=== PATIENT | female | born 1995 | race Caucasian/White ===

== ENCOUNTER 2020-08-31 15:43 | Outpatient (REF) | payer OTHER, SELFPAY ==
[2020-09-01 11:01] LABS: BV Int Neg Control Negative (Negative); BV Int Pos Control Positive (Positive)
[2020-09-01 11:04] LABS: CT PCR NOT DETECTED (Not Detect.); NG PCR NOT DETECTED (Not Detect.)
== END 2020-08-31 15:44 | disposition home or self-care (01) ==
LOC: HO.LAB 15:43
PROVIDERS: PCP Pediatrics; Referring Provider Pediatrics; Visit Provider Obstetrics & Gynecology
DX: B37.3 Candidiasis of vulva and vagina (principal); Z30.9 Encounter for contraceptive management, unspecified
CPT/HCPCS: 87480; 87491; 87510; 87591; 87660; 99212

== ENCOUNTER → 2020-09-16 11:06 | Outpatient (BNVA) | payer OTHER, SELFPAY | PROVIDERS: Visit Provider Advanced Practice Midwife | DX: Z76.89 Persons encountering health services in other specified circumstances (principal) ==

== ENCOUNTER 2020-09-30 10:42 | Emergency (ER) | payer OTHER, SELFPAY ==
[2020-09-30 10:58] VITALS: BP 116/67; PULSE 88; RESP 16; TEMP 36.6; O2SAT 97; BMI 32.9
[2020-09-30 11:21] LABS: Glucose Urine UA NEG (NEG); Leukocyte Esterase Urine NEG (NEG); Nitrite Urine NEG (NEG); Specific Gravity - Urine >= 1.030 (1.005-1.025); Urine Blood NEG (NEG); Urine Ketones NEG (NEG); Urine Protein NEG (NEG-TRACE)
[2020-09-30 11:23] LABS: Appearance Urine CLEAR; Color Urine YELLOW
[2020-09-30 11:24] LABS: UPreg QC Valid YES; Urine Pregnancy NEGATIVE (NEGATIVE)
[2020-09-30 12:04] LABS: Basophils Percent Auto 0.7 % (0-2); Eosinophils Absolute Auto 0.3 X10*3/uL (0.0-0.4); Eosinophils Percent Auto 7.8 % (0-4); Hematocrit 37.5 % (37-47); Hemoglobin 12.3 g/dl (12.0-16.0); Imm Gran Abs Auto 0.01 X10*3/uL (0.00-0.03); Imm Gran Pct Auto 0.2 % (0.0-0.4); Lymphocytes Absolute Auto 1.8 X10*3/uL (1.2-4.9); Lymphocytes Percent Auto 44.8 % (20-40); MANUAL DIFF FLAG NO; Mean Corpuscular HGB Conc 32.8 g/dl (31.0-35.0); Mean Corpuscular Hemoglobin 27.7 pg (27.0-33.0); Mean Corpuscular Volume 84.5 fL (80-98); Mean Platelet Volume 11.5 fL (9.4-12.3); Monocytes Absolute Auto 0.3 X10*3/uL (0.1-1.2); Monocytes Percent Auto 6.6 % (2-11); Neutrophils Absolute Auto 1.6 X10*3/uL (2.0-8.3); Neutrophils Percent Auto 39.9 % (45-73); Platelet Count 175 X10*3/uL (160-400); Red Blood Count 4.44 X10*6/uL (4.20-5.50); Red Cell Distribution Width 12.4 % (11.0-16.0); White Blood Count 4.1 X10*3/uL (4.8-10.8)
--- NOTE | 2020-09-30 12:20 | ED.ABDPAIN ---
HPI - Abdominal Pain General Chief Complaint: Abdominal Pain Stated Complaint: abd pain Time Seen by Provider: 09/30/20 12:20 Source: patient Mode of arrival: ambulatory Limitations: no limitations History of Present Illness HPI narrative: 25-year-old female with past medical history significant for asthma, fibromyalgia and G4, last month cycle 2 weeks ago who presents today with complaint of left-sided abdominal pain that is described as burning and cramping like ongoing for the past and noticed that when she has a bowel movement there is some blood outside the stool. States she also has a history of constipation but has been having somewhat normal bowel movements and has not had any issues with constipation recently. No recent travel, sick contacts, fever, nausea or vomiting. MD elicited complaint: abdominal pain Pertinent past history: none Location: none Severity: moderate Quality: cramping and aching Migration to: LUQ and L flank Relieving factors: nothing Associated symptoms: denies other symptoms Related Data Home Medications Medication Instructions Recorded Confirmed desogestrel 0.15 mg-ethinyl 1 tab PO DAILY 08/31/20 08/31/20 estradiol 0.03 mg tablet Previous Rx's Medication Instructions Recorded clotrimazole-betamethasone 1 1 applic TOPICAL BID 5 Days #45 g 08/31/20 %-0.05 % topical cream desogestrel 0.15 mg-ethinyl 1 tab PO DAILY 28 Days #28 tab 08/31/20 estradiol 0.03 mg tablet fluconazole 150 mg tablet 150 mg PO ONCE #1 tab 08/31/20 metronidazole 500 mg tablet 500 mg PO BID 7 Days #14 tab 09/01/20 polyethylene glycol 3350 [Miralax] 17 g PO DAILY #119 g 09/30/20 Allergies Allergy/AdvReac Type Severity Reaction Status Date / Time Penicillins [PCN] Allergy Intermediate RASH Verified 09/16/20 11:08 penicillin V Allergy Unknown rash Verified 09/16/20 11:08 hard shelled crab Allergy Unknown severe Uncoded 08/31/20 15:52 oral swelling PCN Allergy Unknown rash Uncoded 08/31/20 15:52 SEAFOOD Allergy Unknown SWELLING Uncoded 08/31/20 15:52 wasps Allergy Unknown severe Uncoded 08/31/20 15:52 site swelling Review of Systems Review of Systems Constitutional: No Weight loss, No Fever, No Chills, No Night Sweats, No Fatigue, No Malaise ENT/Mouth: No Hearing loss, No Ear Pain, No Nasal Congestion, No Sinus Pain, No Hoarseness, No sore throat, No Rhinorrhea, No Swallowing Difficulty Eyes: No Eye Pain, No Swelling, No Redness, No Foreign Body, No Discharge, No Vision Changes Cardiovascular: No Chest Pain, No SOB, No Dyspnea on Exertion, No Orthopnea, No Edema, No Palpitations Respiratory: No Cough, No Sputum, No Wheezing, No Dyspnea Gastrointestinal:As nopted in HPI Genitourinary: no irregular bleeding, No Dysuria, No Urinary Frequency, No Hematuria, No Urinary Incontinence, No Urgency, No Flank Pain, No Urinary Flow Changes, No Hesitancy Musculoskeletal: No joint pain, No Myalgias, No Joint Swelling Skin: No Skin Lesions, No rash Neuro: No Weakness, No Numbness, No Paresthesias, No Loss of Consciousness, No Dizziness, No Headache Psych: No Social Issues Heme/Lymph: No Bruising, No Bleeding,No Lymphadenopathy Endocrine: No Polyuria, No Polydipsia, No Temperature Intolerance Yes all other systems are reviewed and are negative Physical Exam Vital Signs: Vital Signs: Last Vital Signs Temp 98.1 F 09/30/20 14:11 Pulse 76 09/30/20 14:11 Resp 16 09/30/20 14:11 BP 113/72 09/30/20 14:11 Pulse Ox 99 09/30/20 14:11 Body Mass Index 32.9 Reviewed Const: General: cooperative and healthy appearing; No acute distress or intoxicated appearing Nutritional Appearance: average body habitus Orientation/consciousness: patient oriented x3 HENMT: Head: Yes normal to inspection Ears: hearing grossly normal bilaterally Eyes: General: appearance normal, both eyes and all related structures Visual Reyes: normal visual reyes by confrontation Neck: Neck: Yes normal visual inspection and No tender Thyroid: Thyroid normal Chest: Chest palpation & inspection: normal inspection of the chest Resp: Effort & Inspection: normal respiratory effort Cardio: Jugular venous distension: no JVD Rhythm: regular rhythm Heart sounds: S1 normal heart sound present and S2 normal heart sound present GI: Inspection: Yes normal to inspection Percussion: Yes normal to percussion Auscultation: normal bowel sounds : General: Yes no CVA tenderness Back/Spine/Pelvis: Back: no CVA tenderness Skin: General skin exam: no rashes or lesions noted Neuro: General: patient oriented x3 Extrem: General: Yes normal to inspection Course Course Course Narrative: Has been resting comfortably, hemodynamically stable. Lab work overall unremarkable, H&H stable. Bedside occult stool negative. CT of the abdomen does not show any inflammatory/infectious pathology does show some findings consistent with constipation. Given the picture that she showed me consistent with constipation could be a cause of her rectal bleeding as well as internal hemorrhoids. At this time no need for emergent evaluation by GI. Will follow up with her primary care doctor and referral provided to GI. In the meantime she will follow high-fiber diet, increase her fluid intake and supple with MiraLax. She is agreeable/comfortable plan. Stable for discharge. MDM - Abdominal Pain MDM Narrative Medical decision making narrative: Show me a picture of her bowel movement in the toilet; shows brown ball formed stool and the water in the toilet bowl has some cloudy kobe blood very minimal. Differential Diagnosis Differential diagnosis: Likely abdominal pain, constipation, diverticulitis and gastroenteritis; Unlikely aortic dissection, acute appendicitis, bowel perforation, calculus of kidney, pancreatitis, peptic ulcer disease, renal colic and small bowel obstruction Lab Data Result diagrams: 09/30/20 11:59 09/30/20 11:59 Labs: Lab Results 09/30/20 09/30/20 09/30/20 Range/Units 11:07 11:59 11:59 WBC 4.1 L (4.8-10.8) X10*3/uL RBC 4.44 (4.20-5.50) X10*6/uL Hgb 12.3 (12.0-16.0) g/dl Hct 37.5 (37-47) % MCV 84.5 (80-98) fL MCH 27.7 (27.0-33.0) pg MCHC 32.8 (31.0-35.0) g/dl RDW 12.4 (11.0-16.0) % Plt Count 175 (160-400) X10*3/uL MPV 11.5 (9.4-12.3) fL Immature Gran % (Auto) 0.2 (0.0-0.4) % Neut % (Auto) 39.9 L (45-73) % Lymph % (Auto) 44.8 H (20-40) % Wharton % (Auto) 6.6 (2-11) % Eos % (Auto) 7.8 H (0-4) % Baso % (Auto) 0.7 (0-2) % Lymph # (Auto) 1.8 (1.2-4.9) X10*3/uL Wharton # (Auto) 0.3 (0.1-1.2) X10*3/uL Eos # (Auto) 0.3 (0.0-0.4) X10*3/uL Baso # (Auto) 0.0 (0.0-0.2) X10*3/uL Abs Immat Gran (auto) 0.01 (0.00-0.03) X10*3/uL Absolute Neuts (auto) 1.6 L (2.0-8.3) X10*3/uL Absolute Nucleated RBC 0.000 (0.0-0.012) X10*3/uL Nucleated RBC % (auto) 0.0 (0.0-0.2) /100WBC Sodium 140 (135-145) mmol/L Potassium 3.6 (3.3-5.1) mmol/l Chloride 106 (96-108) mmol/L Carbon Dioxide 25 (22-29) mmol/L Anion Gap 13 (12-20) BUN 15 (9-16) mg/dL Creatinine 0.66 (0.5-1.4) mg/dL Estim Creat Clear Calc 128.9 Estimated GFR > 60 Random Glucose 97 (60-115) mg/dL Calcium 9.0 (8.4-10.2) mg/dL Total Bilirubin 0.3 (0.0-1.0) mg/dL Direct Bilirubin 0.2 (0.0-0.5) mg/dL AST 11 (5-31) U/L ALT 8 (0-31) U/L Alkaline Phosphatase 58 (39-117) U/L Total Protein 6.8 (6.5-8.0) g/dL Albumin 3.9 (3.5-5.0) g/dL Lipase 20 (8-78) U/L Urine Color YELLOW Urine Appearance CLEAR Urine pH 6.0 (5.0-8.0) Ur Specific Sabina >= 1.030 H (1.005-1.025) Urine Protein NEG (NEG-TRACE) MG/DL Urine Glucose (UA) NEG (NEG) MG/DL Urine Ketones NEG (NEG) MG/DL Urine Blood NEG (NEG) Urine Nitrite NEG (NEG) Ur Leukocyte Esterase NEG (NEG) Urine Test NEGATIVE (NEGATIVE) Discharge Plan Discharge Clinical Impression: Constipation, Bright red rectal bleeding Patient Disposition: Home, Self-Care Instructions: Constipation (ED), Rectal Bleeding (ED) Additional Instructions: Today your evaluated for the left-side abdominal pain and the bright red blood in the stool Your blood work overall was stable The CT scan of your abdomen was also within normal limits as discussed with you The bleeding can be result of the constipation that you have been suffering and possibly internal hemorrhoids Please follow high-fiber diet Supplement with MiraLax Push fluids Follow-up with her primary care doctor/cardiac care nurse as discussed Return if any concerns or worsening symptoms Thank you Prescriptions: New polyethylene glycol 3350 [Miralax] 17 gram/dose powder 17 g PO DAILY Qty: 119 RF: 1 No Action metronidazole [Flagyl] 500 mg tablet 500 mg PO BID 7 Days Qty: 14 RF: 0 desogestrel-ethinyl estradiol 0.15-0.03 mg tablet 1 tab PO DAILY RF: 0 fluconazole 150 mg tablet 150 mg PO ONCE Qty: 1 RF: 0 clotrimazole-betamethasone 1-0.05 % cream 1 applic topical BID 5 Days Qty: 45 RF: 0 desogestrel-ethinyl estradiol [Apri] 0.15-0.03 mg tablet 1 tab PO DAILY 28 Days Qty: 28 RF: 11 Referrals: ED Physician,Generic [Emergency Provider] - 1 week (Primary care is provided) Tito Gaffney MD [Physician] - 2 weeks [facility] Past Medical History Medical History (Updated 09/30/20 @ 14:30 by Yves Valenzuela NP) Asthma Fibromyalgia Social History Social History Alcohol intake: never Smoking Status: Never smoker Use of substances other than those prescribed or required for medical reasons: No Advance Directives: No Advance Directives Information Provided: No Sexual orientation: Straight/Heterosexual Gender identity: female
--- NOTE | 2020-09-30 12:24 | CT_ITS ---
EXAMINATION: CT ABDOMEN AND PELVIS WITH CONTRAST CLINICAL INFORMATION: Left-sided abdominal pain/rectal bleed. COMPARISON: None TECHNIQUE: Multidetector volumetric images were obtained from the superior aspect of the liver through the pubic symphysis following administration 85 mL of Omnipaque 350 intravenous contrast. Sagittal and coronal reformatted images were obtained on the technologist's workstation. Oral contrast: No This CT examination was performed using dose optimization techniques as appropriate, variously including the following: *Automated exposure control *Adjustment of mA and/or kV according to patient size (this includes techniques or standardized protocols for targeted exams where dose is matched to indication/reason for exam; i.e. extremities or head) *Use of iterative reconstruction technique DLP: 655 mGy-cm FINDINGS: LUNG BASES: The visualized lung bases are unremarkable. LIVER, GALLBLADDER, AND BILIARY TREE: The liver is normal in size, shape, and attenuation. No focal hepatic lesion or biliary ductal dilatation is present. The gallbladder is unremarkable with no evidence of radiopaque gallstones, gallbladder wall thickening, or obvious pericholecystic inflammatory changes. PANCREAS: Unremarkable. SPLEEN: Unremarkable. ADRENAL GLANDS: Unremarkable. KIDNEYS AND URETERS: The kidneys are normal in size, shape, and attenuation. No hydronephrosis, hydroureter, or calculi seen. No perinephric stranding. BLADDER: Unremarkable. GASTROINTESTINAL TRACT: Scattered stool and gas seen throughout the colon without any significant distention. The small bowel loops are normal caliber. Appendix is normal caliber. No inflammatory changes or obstruction seen. ABDOMINAL WALL: No significant hernia is appreciated. LYMPH NODES: Normal. VASCULAR: Unremarkable. PELVIC VISCERA: There is scattered stool seen in the rectum and the colon. There are uterus appears unremarkable with a hypodense right adnexal lesion measuring 2.1 x 1.5 cm and approximately 2.6 Hounsfield units suggestive of cyst probably right ovarian origin. There is no free fluid in the cul-de-sac. OSSEOUS STRUCTURES: Unremarkable. CT/CT abdomen pelvis w con IMPRESSION: No acute intra-abdominal process seen. Mild constipation. Probable right ovarian cyst.
[2020-09-30 12:28] LABS: Anion Gap 13 (12-20); Blood Urea Nitrogen 15 mg/dL (9-16); Carbon Dioxide 25 mmol/L (22-29); Chloride 106 mmol/L (96-108); Creatinine Clr Calc Pharmacy 128.9; Estimated Glomerular Filt Rate > 60; Glucose Random 97 mg/dL (60-115); Potassium 3.6 mmol/l (3.3-5.1); Sodium 140 mmol/L (135-145)
[2020-09-30 12:36] VITALS: BP 110/58; PULSE 80; RESP 17; TEMP 36.8; O2SAT 99
[2020-09-30] MEDS: 0.9 % Sodium Chloride 1,000 ML 999 ML IV (12:50)
[2020-09-30 13:40] LABS: Alanine Aminotransferase 8 U/L (0-31); Albumin Level 3.9 g/dL (3.5-5.0); Alkaline Phosphatase 58 U/L (39-117); Aspartate Amino Transferase 11 U/L (5-31); Bilirubin Direct 0.2 mg/dL (0.0-0.5); Bilirubin Total 0.3 mg/dL (0.0-1.0); Lipase 20 U/L (8-78); Total Protein 6.8 g/dL (6.5-8.0)
[2020-09-30] MEDS: iohexoL 350 MG/ML 100 ML INFUS..BTL 85 ML IV (13:44)
[2020-09-30 14:11] VITALS: BP 113/72; PULSE 76; RESP 16; TEMP 36.7; O2SAT 99
== END 2020-09-30 14:45 | disposition home or self-care (01) ==
PROVIDERS: Nurse Practitioner Primary Care; Emergency Provider Emergency Medicine Emergency Medical Services
DX: K59.00 Constipation, unspecified (principal); K62.5 Hemorrhage of anus and rectum
CPT/HCPCS: 36415; 74177; 80048; 80076; 81003; 81025; 83690; 85025; 96360; 99284; Q9967

== ENCOUNTER 2021-05-26 12:44 | Outpatient (REF) | payer OTHER, SELFPAY ==
[2021-05-26 14:19] LABS: COVID-19 Test Negative (Negative)
== END 2021-05-26 12:45 | disposition home or self-care (01) ==
LOC: HO.LAB 12:44
PROVIDERS: Visit Provider Internal Medicine
DX: Z20.822 Contact with and (suspected) exposure to COVID-19 (principal)
CPT/HCPCS: 36415; 87635; C9803; U0003; U0005

== ENCOUNTER 2022-08-29 14:50 | Outpatient (REF) | payer MEDICAID, SELFPAY ==
--- NOTE | ~2022-08-29 | US_ITS ---
EXAMINATION: FIRST TRIMESTER OB ULTRASOUND CLINICAL INFORMATION: Positive test. Abdominal pain. Rule out ectopic . COMPARISON: None TECHNIQUE: Transabdominal and transvaginal pelvic ultrasound. Transvaginal exam was performed for better visualization of the gestational sac. FINDINGS: The uterus is normal in size and shape and measures 8.5 x 4 x 5.7 cm. No focal uterine lesion is seen. There is an intrauterine gestational sac. Mean sac diameter measures 0.61 cm which would suggest gestational age of 5 weeks 1 day. No pole or yolk sac. The cervix is normal. The right ovary measures 3.5 x 2.2 x 2.7 cm. There is a 2.3 x 1.8 x 1.9 cm hypoechoic lesion in the right ovary probably representing a corpus luteum. The left ovary is normal-appearing and measures 2.1 x 1.5 x 2.3 cm. There is no fluid in the pelvis. US/US OB limited IMPRESSION: Intrauterine gestational sac. Mean sac diameter suggests gestational age of 5 weeks 1 day. No pole or yolk sac seen, question secondary to early gestational age.
== END 2022-08-29 14:51 | disposition home or self-care (01) ==
LOC: HO.US 14:50
PROVIDERS: Visit Provider Emergency Medicine
DX: O26.891 Other specified pregnancy related conditions, first trimester (principal); R10.9 Unspecified abdominal pain; Z3A.01 Less than 8 weeks gestation of pregnancy
CPT/HCPCS: 76815

== ENCOUNTER 2023-04-25 15:45 | Outpatient (REF) | payer MEDICAID, SELFPAY ==
--- NOTE | ~2023-04-25 | US_ITS ---
EXAMINATION: US VENOUS ULTRASOUND WITH DOPPLER LOWER EXTREMITY, BILATERAL CLINICAL INFORMATION: Pain and swelling. COMPARISON: None available. TECHNIQUE: Ultrasound of the deep veins is performed from the hip to the calf with compression sonography and color and pulse Doppler assessment. Spectral analysis with color-flow imaging is performed. FINDINGS: RIGHT: There is normal venous compression and respiratory variation and augmented flow. The visualized common femoral vein, superficial femoral vein, profunda femoral vein, popliteal vein, and the trifurcation region shows no evidence of deep venous thrombosis. There is no significant popliteal fossa cyst. LEFT: There is normal venous compression and respiratory variation and augmented flow. The visualized common femoral vein, superficial femoral vein, profunda femoral vein, popliteal vein, and the trifurcation region shows no evidence of deep venous thrombosis. There is no significant popliteal fossa cyst. If the patient's symptoms persist, followup ultrasound in 5 days 7 days might be of value to exclude proximal propagation from a non-visualized calf vein. US/US venous duplex LE BI IMPRESSION: No DVT demonstrated in the bilateral lower extremity.
[2023-04-25 16:36] LABS: MANUAL DIFF FLAG NO
[2023-04-25 18:22] LABS: Basophils Percent Auto 0.5 % (0-2); Eosinophils Absolute Auto 0.2 X10*3/uL (0.0-0.4); Eosinophils Percent Auto 3.1 % (0-4); Hematocrit 30.4 % (37.0-47.0); Imm Gran Abs Auto 0.05 X10*3/uL (0.00-0.03); Imm Gran Pct Auto 0.8 % (0.0-0.4); Lymphocytes Absolute Auto 1.8 X10*3/uL (1.2-4.9); Lymphocytes Percent Auto 29.3 % (20-40); Mean Corpuscular HGB Conc 32.9 g/dl (31.0-35.0); Mean Corpuscular Hemoglobin 26.7 pg (27.0-33.0); Mean Corpuscular Volume 81.1 fL (80.0-98.0); Monocytes Absolute Auto 0.5 X10*3/uL (0.1-1.2); Monocytes Percent Auto 7.9 % (2-11); Neutrophils Absolute Auto 3.6 x10*3/uL (2.0-8.3); Neutrophils Percent Auto 58.4 % (45-73); Platelet Count 193 X10*3/uL (160-400); Red Blood Count 3.75 X10*6/uL (4.20-5.50); White Blood Count 6.2 X10*3/uL (4.8-10.8)
[2023-04-25 18:43] LABS: D Dimer High Sensitivity 984 NG/ML
[2023-04-25 18:48] LABS: Iron 30 mcg/dL (30-160); Percent Iron Saturation 9 % (15-50); Total Iron Binding Capacity 351 mcg/dL (228-428); Unsaturated Iron Binding 321 ug/dL
[2023-04-25 18:56] LABS: Ferritin 21 ng/mL (10-122)
== END 2023-04-25 15:46 | disposition home or self-care (01) ==
LOC: HO.US 15:45
PROVIDERS: PCP Registered Nurse; Visit Provider Registered Nurse
DX: M79.89 Other specified soft tissue disorders (principal)
CPT/HCPCS: 36415; 82728; 83540; 85025; 85379; 93970

== ENCOUNTER 2023-07-19 13:52 | Outpatient (REF) | payer MEDICAID, SELFPAY | END 2023-07-19 13:53 | disposition home or self-care (01) | LOC: HO.CHCLDS 13:52 | PROVIDERS: Visit Provider Registered Nurse | DX: E66.01 Morbid (severe) obesity due to excess calories (principal); Z68.42 Body mass index [BMI] 45.0-49.9, adult; D64.9 Anemia, unspecified | CPT/HCPCS: 36415; 80053; 82728; 83036; 83540; 84443; 85025 ==

== ENCOUNTER → 2023-08-28 11:37 | Outpatient (REF) | payer MEDICAID, SELFPAY ==
--- NOTE | 2023-08-28 11:40 | HM_ITS ---
Conclusion: 1. Patient was monitored for total period of 2 days 2. Baseline was normal sinus with average heart of 94 beats per minute 3. No significant pauses noted 4. Frequent sinus tachycardia noted with 32.6% of time heart rate about 100 beats per minute 5. Rare PACs noted 6. No patient reported symptoms MTDD
== END ==
LOC: HO.CARD 11:37
PROVIDERS: PCP Registered Nurse; Visit Provider Registered Nurse
DX: R00.2 Palpitations (principal)
CPT/HCPCS: 93225

== ENCOUNTER → 2023-08-28 11:40 | Outpatient (BNV) | payer MEDICAID, SELFPAY | PROVIDERS: PCP Registered Nurse; Visit Provider Internal Medicine Cardiovascular Disease | DX: R00.0 Tachycardia, unspecified (principal) | CPT/HCPCS: 93227 ==

== ENCOUNTER 2024-09-21 14:06 | Outpatient (REF) | payer MEDICAID, SELFPAY ==
[2024-09-21 18:15] LABS: Appearance Urine Clear; Color Urine Yellow; Glucose Urine UA Negative (Negative); Leukocyte Esterase Urine Negative (Negative); Nitrite Urine Negative (Negative); PH 6.5 (5.0-9.0); Specific Gravity - Urine 1.025 (1.005-1.025); Urine Blood Negative (Negative); Urine Ketones Negative (Negative); Urine Protein Negative (Neg-Trace)
[2024-09-21 18:21] LABS: Bacteria Urine None Seen (None Seen); Hyaline Casts Urine 0-2 /LPF (0-2); RBC Urine 0-2 /HPF (0-2); Squamous Epithelial Cell Urine 0-2 /HPF (0-2); WBC Urine 0-5 /HPF (0-5)
== END 2024-09-21 14:07 | disposition home or self-care (01) ==
LOC: HO.CHCLNP 14:06
PROVIDERS: Visit Provider Registered Nurse
DX: D50.9 Iron deficiency anemia, unspecified (principal)
CPT/HCPCS: 81001

== ENCOUNTER 2024-09-22 10:51 | Outpatient (REF) | payer MEDICAID, SELFPAY ==
[2024-09-22 14:24] LABS: MANUAL DIFF FLAG NO
[2024-09-22 14:27] LABS: Basophils Percent Auto 0.6 % (0-2); Eosinophils Absolute Auto 0.3 X10*3/uL (0.0-0.4); Eosinophils Percent Auto 4.9 % (0-4); Hematocrit 38.1 % (37.0-47.0); Hemoglobin 11.8 g/dl (12.0-16.0); Imm Gran Abs Auto 0.02 X10*3/uL (0.00-0.03); Imm Gran Pct Auto 0.3 % (0.0-0.4); Lymphocytes Absolute Auto 2.4 X10*3/uL (1.2-4.9); Lymphocytes Percent Auto 34.4 % (20-40); Mean Corpuscular Hemoglobin 24.1 pg (27.0-33.0); Mean Corpuscular Volume 77.9 fL (80.0-98.0); Mean Platelet Volume 11.3 fL (9.4-12.3); Monocytes Absolute Auto 0.5 X10*3/uL (0.1-1.2); Neutrophils Absolute Auto 3.6 x10*3/uL (2.0-8.3); Neutrophils Percent Auto 52.8 % (45-73); Platelet Count 282 X10*3/uL (160-400); Red Blood Count 4.89 X10*6/uL (4.20-5.50); Red Cell Distribution Width 15.3 % (11.0-16.0); White Blood Count 6.9 X10*3/uL (4.8-10.8)
[2024-09-22 14:33] LABS: Anion Gap 12 (12-20)
[2024-09-22 14:37] LABS: Aspartate Amino Transferase 18 U/L (5-31); Bilirubin Total 0.3 mg/dL (0.0-1.0); Blood Urea Nitrogen 12 mg/dL (9-16); Calcium 9.5 mg/dL (8.4-10.2); Carbon Dioxide 25 mmol/L (22-29); Chloride 105 mmol/L (96-108); Cholesterol 162 mg/dL (<200); Estimated Glomerular Filt Rate > 60; Glucose Random 88 mg/dL (60-115); HDL Cholesterol 41 mg/dL (>40); Iron 36 mcg/dL (30-160); LDL Cholesterol Calculated 97 mg/dL (<100); Percent Iron Saturation 13 % (15-50); Potassium 3.6 mmol/L (3.3-5.1); Sodium 138 mmol/L (135-145); Total Iron Binding Capacity 276 mcg/dL (228-428); Total Protein 7.5 g/dL (6.5-8.0); Triglycerides 120 mg/dL (<150); Unsaturated Iron Binding 240 ug/dL
[2024-09-22 14:52] LABS: Alanine Aminotransferase 11 U/L (0-31)
[2024-09-22 14:59] LABS: Estimated Average Glucose 111 mg/dL; Ferritin 29 ng/mL (10-122); Hemoglobin A1C 112.3849 umol/L; Hemoglobin A1c % 5.5 % (<6.0); TSH reflex Free T4 1.29 uIU/mL (0.32-4.0); Total Hemoglobin (HGBA1C) 3100.1141 umol/L
[2024-09-22 15:16] LABS: Alkaline Phosphatase 83 U/L (39-117)
== END 2024-09-22 10:52 | disposition home or self-care (01) ==
LOC: HO.CHCLDS 10:51
PROVIDERS: Visit Provider Registered Nurse
DX: E66.01 Morbid (severe) obesity due to excess calories (principal); Z68.42 Body mass index [BMI] 45.0-49.9, adult; D50.9 Iron deficiency anemia, unspecified
CPT/HCPCS: 36415; 80053; 80061; 82728; 83036; 83540; 84443; 85025

== ENCOUNTER 2025-01-04 10:08 | Outpatient (REF) | payer MEDICAID, SELFPAY ==
[2025-01-04 14:22] LABS: MANUAL DIFF FLAG NO
[2025-01-04 14:26] LABS: Basophils Absolute Auto 0.1 X10*3/uL (0.0-0.2); Basophils Percent Auto 0.8 % (0-2); Eosinophils Absolute Auto 0.3 X10*3/uL (0.0-0.4); Eosinophils Percent Auto 4.1 % (0-4); Hematocrit 35.7 % (37.0-47.0); Hemoglobin 11.6 g/dl (12.0-16.0); Imm Gran Abs Auto 0.02 X10*3/uL (0.00-0.03); Imm Gran Pct Auto 0.3 % (0.0-0.4); Lymphocytes Absolute Auto 2.4 X10*3/uL (1.2-4.9); Lymphocytes Percent Auto 39.7 % (20-40); Mean Corpuscular HGB Conc 32.5 g/dl (31.0-35.0); Mean Corpuscular Hemoglobin 24.9 pg (27.0-33.0); Mean Corpuscular Volume 76.6 fL (80.0-98.0); Mean Platelet Volume 11.5 fL (9.4-12.3); Monocytes Absolute Auto 0.4 X10*3/uL (0.1-1.2); Neutrophils Percent Auto 49.1 % (45-73); Platelet Count 259 X10*3/uL (160-400); Red Blood Count 4.66 X10*6/uL (4.20-5.50); Red Cell Distribution Width 15.3 % (11.0-16.0)
[2025-01-04 14:57] LABS: Ferritin 24 ng/mL (10-122); HCG Quantitative 2726 mIU/mL
== END 2025-01-04 10:09 | disposition home or self-care (01) ==
LOC: HO.CHCLDS 10:08
PROVIDERS: Visit Provider Registered Nurse
DX: Z00.00 Encounter for general adult medical examination without abnormal findings (principal)
CPT/HCPCS: 36415; 82728; 84702; 85025

== ENCOUNTER 2025-07-01 10:20 | Outpatient (REF) | payer MEDICAID, SELFPAY ==
[2025-07-01 11:53] LABS: MANUAL DIFF FLAG NO
[2025-07-01 11:58] LABS: Hematocrit 28.9 % (37.0-47.0); Hemoglobin 9.5 g/dl (12.0-16.0); Imm Gran Abs Auto 0.03 X10*3/uL (0.00-0.03); Imm Gran Pct Auto 0.4 % (0.0-0.4); Lymphocytes Absolute Auto 1.9 X10*3/uL (1.2-4.9); Mean Corpuscular HGB Conc 32.9 g/dl (31.0-35.0); Mean Corpuscular Hemoglobin 25.9 pg (27.0-33.0); Mean Corpuscular Volume 78.7 fL (80.0-98.0); NRBC Abs Auto 0.000 X10*3/uL (0.0-0.012); NRBC Pct Auto 0.0 /100WBC (0.0-0.2); Platelet Count 164 X10*3/uL (160-400); Red Blood Count 3.67 X10*6/uL (4.20-5.50); White Blood Count 7.5 X10*3/uL (4.8-10.8)
[2025-07-01 12:50] LABS: Ferritin 10 ng/mL (10-122)
== END 2025-07-01 10:21 | disposition home or self-care (01) ==
LOC: HO.HHCL 10:20
PROVIDERS: PCP Registered Nurse; Visit Provider Registered Nurse
DX: D50.9 Iron deficiency anemia, unspecified (principal)
CPT/HCPCS: 36415; 82728; 85025